=== PATIENT | female | born 1940 | race Caucasian/White ===

== ENCOUNTER 2017-07-03 15:24 | Emergency (ER) | payer OTHER ==
[2017-07-03 15:47] VITALS: BP 144/71; PULSE 79; TEMP 97.8; BMI 25.3
--- NOTE | 2017-07-03 16:09 | PDOC ---
History of Present Illness - General Chief Complaint: Pain Stated Complaint: LT ARM NUMBNESS Time Seen by Provider: 07/03/17 16:07 History Source: Patient, Family Exam Limitations: No Limitations - History of Present Illness Initial Comments: Pt is 77 yo F with hx of osteoarthritis presenting with L shoulder pain and skin discoloration. Pt has had chronic L shoulder pain 8/10, worse with movement, improved with naproxen. No hx of trauma, no associated shoulder swelling. Yesterday, the [id number] tried to help her dress up and noticed discoloration of the L shoulder posteriorly. Pt is not on any known anticoagulation but has been on NSAIDs. No chest pain, palpitations, or SOB. She has intermittent non productive cough. No weight loss. 07/03/17 17:15 Timing/Duration: constant Past History - Travel Traveled outside of the country in the last 30 days: No Close contact w/someone who was outside of country & ill: No - Past Medical History Allergies/Adverse Reactions: Allergies Allergy/AdvReac Type Severity Reaction Status Date / Time No Known Allergies Allergy Verified 07/03/17 15:34 COPD: No Other medical history: arthritis - Suicide/Smoking/Psychosocial Hx Smoking History: Never smoked Have you smoked in the past 12 months: No Information on smoking cessation initiated: No Hx Alcohol Use: No Drug/Substance Use Hx: No Substance Use Type: None Review of Systems - Review of Systems Able to Perform ROS?: Yes Is the patient limited Burmese proficient: Yes Constitutional: No: Chills, Diaphoresis, Fever, Night Sweats, Unexplained wgt Loss HEENTM: No: Eye Pain, Blurred Vision, Tearing, Double Vision, Ear Discharge, Nose Congestion, Difficulty Swallowing Respiratory: Yes: Cough (dry cough). No: Orthopnea, Shortness of Breath, SOB with Exertion, SOB at Rest, Wheezing, Hemoptysis Cardiac (ROS): No: Chest Pain, Edema, Palpitations, Syncope, Chest Tightness ABD/GI: No: Abdominal Distended, Nausea : No: Dysuria, Discharge, Pain Musculoskeletal: Yes: Joint Pain (L Shoulder pain ). No: Back Pain, Joint Swelling Integumentary: Yes: Change in Color (Localized mild mottling over L posterior shoulder) Neurological: No: Headache, Numbness, Paresthesia Endocrine: No: Excessive Sweating Hematologic/Lymphatic: No: Blood Clots, Easy Bleeding *Physical Exam - Vital Signs Last Vital Signs Temp Pulse Resp BP Pulse Ox 97.8 F 79 18 144/71 98 07/03/17 15:35 07/03/17 15:35 07/03/17 15:35 07/03/17 15:35 07/03/17 15:35 - Physical Exam General Appearance: No: Apparent Distress HEENT: positive: Pharynx Normal Neck: positive: Supple Respiratory/Chest: positive: Lungs Clear, Normal Breath Sounds. negative: Rhonchi, Stridor, Wheezing Cardiovascular: positive: Regular Rate, S1, S2 Gastrointestinal/Abdominal: positive: Normal Bowel Sounds, Soft. negative: Tender Musculoskeletal: positive: Decreased Range of Motion (decreased active ROM L shoulder ) Extremity: positive: Normal Inspection. negative: Coldness, Pedal Edema, Swelling Integumentary: positive: Warm Neurologic: positive: Fully Oriented, Alert, Normal Mood/Affect, Motor Strength 5/5 (Globally LLE bilaterally, RUE. Limitation due to pain LUE, muscle strength 5/5 LUE) Medical Decision Making - Medical Decision Making Will do a L shoulder Xray to asess the shoulder pain. There is no muscle weakness noted on examination. For the localized skin mottling, duplex US of R upper extremity will be done. 07/03/17 18:24 L shoulder - no acute changes LUE duplex- no evidence of DVT Plan discharge for follow up with PCP for L shoulder joint pain 07/03/17 19:28 *DC/Admit/Observation/Transfer Diagnosis at time of Disposition: Shoulder pain, left - Discharge Dispostion Disposition: HOME Condition at time of disposition: Fair Admit: No - Referrals Referrals: Panchito Rod MD [Primary Care Provider] - - Patient Instructions Printed Discharge Instructions: DI for Shoulder Pain Additional Instructions: You were seen for pain in the L shoulder that has been going on for a while and difficulty lifting the L shoulder due to the pain. There was no weakness of any other part of the body and no evidence of stroke Continue to take pain medicine as needed for the L shoulder pain You had noticed a discoloration at the L shoulder behind- we checked to make sure there was no blockage of blood to the shoulder Please follow up with your primary doctor for management of your L shoulder pain If you have chest pain, palpitations or weakness of halsf of your body please return to the emergency room - Post Discharge Activity - Attestations Physician Attestion: 07/03/17 19:34 Tamara Leary MD
--- NOTE | 2017-07-03 19:35 | PDOC ---
Attending Attestation - Resident Resident Name: Tamara Leary I - ED Attending Attestation I have performed the following: I have examined & evaluated the patient, The case was reviewed & discussed with the resident, I agree w/resident's findings & plan, Exceptions are as noted - HPI HPI: 07/03/17 19:34 77 yo female with a history of left shoulder pain was brought in by daughter because of lacy brown pigmentation to back near scalpula Pt denies any recent trauma - Physicial Exam PE: 07/03/17 20:20 77 yo female with lacy brown nontender,nonpalapble "mottling" to left scapula.Denies trauma PT IS ABLE TO RAISE HER ARM,HAS GOOD ULNAR AND RADIAL PULSES 07/05/17 02:52 - Medical Decision Making 07/05/17 02:54 duplex doppler is NEGATIVE for DVT in her arm plan discharge home
--- NOTE | 2017-07-06 09:35 | EKG ---
Test Reason : Blood Pressure : / mmHG Vent. Rate : 072 BPM Atrial Rate : 072 BPM P-R Int : 162 ms QRS Dur : 084 ms QT Int : 402 ms P-R-T Axes : 076 056 060 degrees QTc Int : 440 ms NORMAL SINUS RHYTHM T WAVE ABNORMALITY, CONSIDER ANTERIOR ISCHEMIA ABNORMAL ECG NO PREVIOUS ECGS AVAILABLE Confirmed by CHIDI MCNEILL MD ([id number]) on 07/06/2017 9:34:47 AM Referred By: Confirmed By:CHIDI MCNEILL MD
== END 2017-07-03 20:33 | disposition home or self-care (01) ==
LOC: JER 15:24
DX: L98.8 Other specified disorders of the skin and subcutaneous tissue (principal); M25.512 Pain in left shoulder
CPT/HCPCS: 73030-TC-LT-FY; 93005; 93010; 93971; 99282-25

== ENCOUNTER 2020-11-17 17:34 | Observation (INO) | payer OTHER ==
[2020-11-17 18:16] VITALS: BMI 27.0
[2020-11-17 22:27] LABS: BASO % 0.5 % (0-2.0); LYMPH % 39.8 % (8-40); MCH 31.6 pg (25.7-33.7); MCHC 34.1 g/dl (32.0-36.0); MEAN CELL VOLUME 92.5 fl (80-96); MEAN PLT VOLUME 8.2 fl (7.5-11.1); MONO % 6.8 % (3.8-10.2); NEUT % 45.9 % (42.8-82.8); PLATELET COUNT 260 10^3/uL (134-434); RBC 3.79 M/mm3 (3.60-5.2); RDW 13.4 % (11.6-15.6); WHITE BLOOD COUNT 5.1 K/mm3 (4.0-10.0)
[2020-11-17 22:28] LABS: EPI CELLS 7 /uL (0-25.1); HYALINE CASTS 1 /uL (0-3.1); PH,URINE 6.5 (5.0-8.0); URINE APPEARANCE CLEAR; URINE BACTERIA 6 /uL (0-1359); URINE BILIRUBIN NEGATIVE (NEGATIVE); URINE COLOR YELLOW; URINE GLUCOSE (UA) NEGATIVE (NEGATIVE); URINE KETONE NEGATIVE (NEGATIVE); URINE LEUK ESTERASE 1+ (NEGATIVE); URINE NITRITE NEGATIVE (NEGATIVE); URINE PROTEIN NEGATIVE (NEGATIVE); URINE RBC 25 /uL (0-23.9); URINE UROBILINOGEN 0.2 mg/dL (0.2-1.0); URINE WBC 49 /uL (0-25.8)
[2020-11-17 22:52] LABS: CHLORIDE 109 mmol/L (98-107); SODIUM 141 mmol/L (136-145)
[2020-11-17 22:55] LABS: CALCIUM 8.4 mg/dL (8.5-10.1)
[2020-11-17 22:56] LABS: ANION GAP 5 MMOL/L (8-16); BLOOD UREA NITROGEN 12.6 mg/dL (7-18); CO2 27 mmol/L (21-32); GLUCOSE,RANDOM 89 mg/dL (74-106); LIPASE 438 U/L (73-393)
[2020-11-17 22:58] LABS: SGPT/ALT 31 U/L (13-61)
[2020-11-17 22:59] LABS: CREATININE 0.7 mg/dL (0.55-1.3); SGOT/AST 23 U/L (15-37)
[2020-11-17 23:00] LABS: BILIRUBIN,TOTAL 0.7 mg/dL (0.2-1); TOT PROT 7.1 g/dl (6.4-8.2)
[2020-11-17 23:01] LABS: ALK PHOS 108 U/L (45-117)
[2020-11-17] MEDS ORDERED: MAG HYDROX/AL HYDROX/SIMETH 30 ML UNIT-DOSE CUP PO ONE (23:34)
[2020-11-17] MEDS ORDERED: FAMOTIDINE 20 MG/50 ML IVPB 20 MG/50 ML MG IVPB ONE (23:34)
[2020-11-18] MEDS ORDERED: FAMOTIDINE 20 MG/50 ML IVPB 20 MG/50 ML MG IVPB ONE (00:01)
[2020-11-18] MEDS ORDERED: MAG HYDROX/AL HYDROX/SIMETH 30 ML UNIT-DOSE CUP ONE (00:01)
[2020-11-18] MEDS ORDERED: PANTOPRAZOLE SODIUM 40 MG VIAL IVPUSH ONE (05:23)
[2020-11-18] MEDS ORDERED: PANTOPRAZOLE SODIUM 40 MG/100 ML BAG IVPB ONE (05:30)
[2020-11-18] MEDS ORDERED: CEFTRIAXONE 1 GM/50 ML BAG ONE (05:55)
[2020-11-18] MEDS ORDERED: amLODIPine BESYLATE 2.5 MG TABLET (FP) PO SCH (10:00)
[2020-11-18] MEDS ORDERED: amLODIPine BESYLATE 2.5 MG TABLET (FP) ONE (10:37)
[2020-11-18] MEDS ORDERED: ENOXAPARIN NA (PORCINE) 40 MG/0.4 ML DISP.SYRIN SQ ONE (10:37)
[2020-11-18] MEDS: ENOXAPARIN NA (PORCINE) 40 MG/0.4 ML DISP.SYRIN SQ SCH (10:39)
[2020-11-18] MEDS ORDERED: MAG HYDROX/AL HYDROX/SIMETH 30 ML UNIT-DOSE CUP PO PRN (12:10)
[2020-11-18] MEDS ORDERED: POLYETHYLENE GLYCOL (HEALTHYLAX) 3350 17 GM PACKET ONE (14:23)
[2020-11-18] MEDS: POLYETHYLENE GLYCOL (HEALTHYLAX) 3350 17 GM PACKET PO SCH ×2 (14:32→22:35)
[2020-11-18 15:56] LABS: CHOLESTEROL 179 mg/dL (50-200); TRIGLYCERIDES 123 mg/dL (0-150)
[2020-11-18 15:57] LABS: LDL CHOLESTEROL (ONLY SJRH) 91 mg/dL (5-100)
[2020-11-18 15:59] LABS: HDL CHOLESTEROL 66 mg/dL (40-60)
[2020-11-19] MEDS: POLYETHYLENE GLYCOL (HEALTHYLAX) 3350 17 GM PACKET PO SCH ×2 (05:16→15:46)
[2020-11-19 08:38] LABS: BASO % 0.6 % (0-2.0); EOS % 5.8 % (0-4.5); HEMATOCRIT 40.5 % (32.4-45.2); LYMPH % 38.2 % (8-40); MCH 31.9 pg (25.7-33.7); MCHC 34.5 g/dl (32.0-36.0); MEAN CELL VOLUME 92.5 fl (80-96); MONO % 5.2 % (3.8-10.2); NEUT % 50.2 % (42.8-82.8); PLATELET COUNT 299 10^3/uL (134-434); RBC 4.38 M/mm3 (3.60-5.2); RDW 13.4 % (11.6-15.6); WHITE BLOOD COUNT 5.1 K/mm3 (4.0-10.0)
[2020-11-19 08:53] LABS: CHLORIDE 105 mmol/L (98-107); SODIUM 139 mmol/L (136-145)
[2020-11-19 09:00] LABS: BLOOD UREA NITROGEN 11.4 mg/dL (7-18); CALCIUM 9.2 mg/dL (8.5-10.1)
[2020-11-19 09:02] LABS: BILIRUBIN,TOTAL 0.9 mg/dL (0.2-1)
[2020-11-19 09:03] LABS: CREATININE 0.7 mg/dL (0.55-1.3); TOT PROT 7.8 g/dl (6.4-8.2)
[2020-11-19 09:04] LABS: CALCIUM 9.3 mg/dL (8.5-10.1)
[2020-11-19 09:06] LABS: BLOOD UREA NITROGEN 11.6 mg/dL (7-18)
[2020-11-19 09:08] LABS: ANION GAP 7 MMOL/L (8-16); CHOLESTEROL 211 mg/dL (50-200); CO2 27 mmol/L (21-32); CREATININE 0.7 mg/dL (0.55-1.3); GLUCOSE,RANDOM 78 mg/dL (74-106)
[2020-11-19 09:09] LABS: TRIGLYCERIDES 96 mg/dL (0-150)
[2020-11-19 09:10] LABS: HDL CHOLESTEROL 83 mg/dL (40-60); LDL CHOLESTEROL (ONLY SJRH) 105 mg/dL (5-100)
[2020-11-19 09:23] LABS: ALBUMIN 3.6 g/dl (3.4-5.0)
[2020-11-19] MEDS: ENOXAPARIN NA (PORCINE) 40 MG/0.4 ML DISP.SYRIN SQ SCH (09:32)
[2020-11-19] MEDS ORDERED: PNEUMOC 13-VAL CONJ-DIP CRM/PF 0.5 ML DISP.SYRIN IM ONE (10:00)
[2020-11-19 14:08] VITALS: BP 133/78; PULSE 90; TEMP 98.5
== END 2020-11-19 18:49 | disposition home or self-care (01) ==
LOC: JER 17:34 → UNDOADMOB 11-18 02:26 → INTOOBSV 11-18 02:26 → JERBED 11-18 02:26 → J4W 11-18 21:30 → JERBED 11-18 21:30 → J4W 11-19 10:02 → JERBED 11-19 10:02
PROVIDERS: ADMIT Internal Medicine; ATTEND Internal Medicine
PROC: 3E023GC Introduction of Other Therapeutic Substance into Muscle, Percutaneous Approach (ICD-10-PCS; principal; 2020-11-19)
DX: N39.0 Urinary tract infection, site not specified (principal); A08.8 Other specified intestinal infections; F03.90 Unspecified dementia, unspecified severity, without behavioral disturbance, psychotic disturbance, mood disturbance, and anxiety; M19.90 Unspecified osteoarthritis, unspecified site; N13.5 Crossing vessel and stricture of ureter without hydronephrosis; K86.2 Cyst of pancreas; E05.90 Thyrotoxicosis, unspecified without thyrotoxic crisis or storm; R07.9 Chest pain, unspecified; J40 Bronchitis, not specified as acute or chronic; Z80.0 Family history of malignant neoplasm of digestive organs; K52.9 Noninfective gastroenteritis and colitis, unspecified; R10.13 Epigastric pain; L92.8 Other granulomatous disorders of the skin and subcutaneous tissue; R05 Cough; Z29.9 Encounter for prophylactic measures, unspecified; Z87.891 Personal history of nicotine dependence
CPT/HCPCS: 36415; 71045-TC-FY; 71260-TC; 74177-TC; 80048; 80053; 80061; 81003; 82105; 82150; 82378; 83036; 83690; 84443; 84484; 84999; 85025; 86301; 87086; 87798; 90670; 93005; 93010; 93306-TC; 96372; 97116-GP; 97161-GP; 99285-25; C9803; G0009; G0378; U0003; U0005

== ENCOUNTER 2022-03-17 22:37 | Observation (INO) | payer OTHER ==
[2022-03-17 22:50] VITALS: BMI 25.1
[2022-03-17] MEDS ORDERED: IBUPROFEN 600 MG TABLET (FP) PO ONE ×2 (23:31→23:44)
[2022-03-18] MEDS ORDERED: LACTATED RINGERS SOLUTION 1000 ML INFUS.BAG IV ONE (00:49)
[2022-03-18] MEDS ORDERED: ACETAMINOPHEN 1000 MG/100 ML BAG IVPB ONE (00:52)
[2022-03-18] MEDS ORDERED: ONDANSETRON 4 MG/2 ML VIAL IVPUSH ONE (00:52)
[2022-03-18] MEDS ORDERED: ACETAMINOPHEN INJECTION 100 ML IVPB ONE (01:17)
[2022-03-18] MEDS ORDERED: ONDANSETRON 4 MG/2 ML VIAL ONE (01:17)
[2022-03-18 01:26] LABS: EPI CELLS 17 /uL (0-25.1); HYALINE CASTS 8 /uL (0-3.1); PH,URINE 5.5 (5.0-8.0); URINE APPEARANCE CLOUDY; URINE BACTERIA 8 /uL (0-1359); URINE BILIRUBIN NEGATIVE (NEGATIVE); URINE COLOR YELLOW; URINE GLUCOSE (UA) NEGATIVE (NEGATIVE); URINE KETONE 1+ (NEGATIVE); URINE LEUK ESTERASE 1+ (NEGATIVE); URINE NITRITE NEGATIVE (NEGATIVE); URINE PROTEIN 2+ (NEGATIVE); URINE UROBILINOGEN 0.2 mg/dL (0.2-1.0); URINE WBC 34 /uL (0-25.8)
[2022-03-18 01:29] LABS: BASO % 0.2 % (0-2.0); HEMOGLOBIN 12.4 GM/dL (10.7-15.3); LYMPH % 7.3 % (8-40); MCH 30.5 pg (25.7-33.7); MCHC 32.7 g/dl (32.0-36.0); MEAN CELL VOLUME 93.4 fl (80-96); MEAN PLT VOLUME 7.7 fl (7.5-11.1); MONO % 4.2 % (3.8-10.2); NEUT % 88.3 % (42.8-82.8); PLATELET COUNT 232 10^3/uL (134-434); RBC 4.07 M/mm3 (3.60-5.2); RDW 13.6 % (11.6-15.6); WHITE BLOOD COUNT 7.4 K/mm3 (4.0-10.0)
[2022-03-18 01:55] LABS: ALBUMIN 3.5 g/dl (3.4-5.0); BLOOD UREA NITROGEN 12.7 mg/dL (7-18); CALCIUM 8.4 mg/dL (8.5-10.1)
[2022-03-18 02:01] LABS: BILIRUBIN,TOTAL 0.5 mg/dL (0.2-1); TOT PROT 7.2 g/dl (6.4-8.2)
[2022-03-18] MEDS ORDERED: SODIUM CHLORIDE 1,000 ML IV SCH (03:30)
[2022-03-18] MEDS ORDERED: ACETAMINOPHEN 325 MG TABLET (FP) PO PRN (04:42)
[2022-03-18] MEDS ORDERED: ASPIRIN 325 MG TABLET PO ONE (04:58)
[2022-03-18 08:02] LABS: BASO % 0.3 % (0-2.0); EOS % 0.1 % (0-4.5); HEMATOCRIT 33.3 % (32.4-45.2); HEMOGLOBIN 11.1 GM/dL (10.7-15.3); MCHC 33.3 g/dl (32.0-36.0); MEAN CELL VOLUME 93.1 fl (80-96); MEAN PLT VOLUME 8.1 fl (7.5-11.1); MONO % 5.1 % (3.8-10.2); NEUT % 76.5 % (42.8-82.8); PLATELET COUNT 205 10^3/uL (134-434); RBC 3.57 M/mm3 (3.60-5.2); RDW 14.1 % (11.6-15.6); WHITE BLOOD COUNT 5.7 K/mm3 (4.0-10.0)
[2022-03-18 08:09] LABS: INR 1.21 (0.83-1.09); PROTHROMBIN TIME (PATIENT) 13.9 SEC (9.7-13.0)
[2022-03-18 08:26] LABS: BLOOD UREA NITROGEN 13.5 mg/dL (7-18); CALCIUM 7.8 mg/dL (8.5-10.1)
[2022-03-18 08:27] LABS: MAGNESIUM 1.9 mg/dL (1.8-2.4)
[2022-03-18 08:30] LABS: CREATININE 0.9 mg/dL (0.55-1.3); PHOSPHOROUS 4.4 mg/dL (2.5-4.9)
[2022-03-18 08:31] LABS: BILIRUBIN,TOTAL 0.5 mg/dL (0.2-1); TOT PROT 5.8 g/dl (6.4-8.2)
[2022-03-18 08:46] LABS: ALBUMIN 2.7 g/dl (3.4-5.0)
[2022-03-18] MEDS ORDERED: OSELTAMIVIR PHOSPHATE 75 MG CAPSULE PO ONE (13:45)
[2022-03-18] MEDS ORDERED: OSELTAMIVIR PHOSPHATE 75 MG CAPSULE ONE (14:27)
[2022-03-18] MEDS ORDERED: ATORVASTATIN CA 10 MG TABLET (FP) ONE (21:38)
[2022-03-18] MEDS ORDERED: ATORVASTATIN CA 10 MG TABLET (FP) PO SCH (22:00)
[2022-03-19 08:59] LABS: BASO % 0.3 % (0-2.0); HEMATOCRIT 34.2 % (32.4-45.2); HEMOGLOBIN 11.3 GM/dL (10.7-15.3); LYMPH % 11.7 % (8-40); MCH 30.8 pg (25.7-33.7); MEAN CELL VOLUME 93.2 fl (80-96); MEAN PLT VOLUME 8.2 fl (7.5-11.1); MONO % 6.3 % (3.8-10.2); NEUT % 81.7 % (42.8-82.8); PLATELET COUNT 173 10^3/uL (134-434); RBC 3.66 M/mm3 (3.60-5.2); RDW 13.6 % (11.6-15.6); WHITE BLOOD COUNT 5.4 K/mm3 (4.0-10.0)
[2022-03-19] MEDS ORDERED: OSELTAMIVIR PHOSPHATE 75 MG CAPSULE ONE (09:02)
[2022-03-19] MEDS ORDERED: ASPIRIN 81 MG CHEWABLE TABLETS ONE (09:02)
[2022-03-19] MEDS ORDERED: ACETAMINOPHEN 325 MG TABLET (FP) ONE (09:15)
[2022-03-19 09:30] LABS: ALBUMIN 2.7 g/dl (3.4-5.0); BLOOD UREA NITROGEN 10.9 mg/dL (7-18); CALCIUM 7.7 mg/dL (8.5-10.1)
[2022-03-19 09:35] LABS: BILIRUBIN,TOTAL 0.4 mg/dL (0.2-1); TOT PROT 5.9 g/dl (6.4-8.2)
[2022-03-19 09:37] LABS: CREATININE 0.7 mg/dL (0.55-1.3)
[2022-03-19] MEDS ORDERED: ASPIRIN 81 MG CHEWABLE TABLETS PO SCH (10:00)
[2022-03-19] MEDS ORDERED: OSELTAMIVIR PHOSPHATE 30 MG CAPSULE PO SCH (10:00)
[2022-03-19] MEDS ORDERED: guaiFENesin 200 MG/10 ML 10 ML UNIT-DOSE CUPS PO PRN (10:28)
[2022-03-19 16:53] VITALS: BP 128/70; PULSE 88; RESP 18; TEMP 98.6
== END 2022-03-19 16:30 | disposition home or self-care (01) ==
LOC: JER 22:37 → JERBED 03-18 01:01
PROVIDERS: ADMIT Family Medicine; ATTEND Internal Medicine
PROC: 3E033NZ Introduction of Analgesics, Hypnotics, Sedatives into Peripheral Vein, Percutaneous Approach (ICD-10-PCS; principal; 2022-03-18)
PROC: 3E033GC Introduction of Other Therapeutic Substance into Peripheral Vein, Percutaneous Approach (ICD-10-PCS; 2022-03-18)
PROC: 3E0337Z Introduction of Electrolytic and Water Balance Substance into Peripheral Vein, Percutaneous Approach (ICD-10-PCS; 2022-03-18)
DX: J09.X2 Influenza due to identified novel influenza A virus with other respiratory manifestations (principal); R32 Unspecified urinary incontinence; E78.5 Hyperlipidemia, unspecified; R94.31 Abnormal electrocardiogram [ECG] [EKG]; F03.90 Unspecified dementia, unspecified severity, without behavioral disturbance, psychotic disturbance, mood disturbance, and anxiety; M79.10 Myalgia, unspecified site; R31.9 Hematuria, unspecified
CPT/HCPCS: 0241U-QW; 36415; 71046-TC-FY; 80053; 81003; 83735; 84100; 84484; 85025; 85610; 86850; 86900; 86901; 87086; 93005; 93010; 93306-TC; 96361; 96374; 96375; 99285-25; G0378